=== PATIENT | female | born 1960 | race Caucasian/White ===

== ENCOUNTER 2020-03-23 15:51 | Emergency (ER) | payer MEDICAID ==
[~2020-03-23] VITALS: Ht 157.5 cm; Wt 77.4 kg
[2020-03-23 16:04] VITALS: BP 178/81
== END 2020-03-23 16:50 | disposition left against medical advice (07) ==
LOC: ER 15:52
DX: G89.29 Other chronic pain (principal); M54.9 Dorsalgia, unspecified; Z53.21 Procedure and treatment not carried out due to patient leaving prior to being seen by health care provider

== ENCOUNTER 2021-01-03 19:56 | Emergency (ER) | payer MEDICAID ==
[~2021-01-03] VITALS: Ht 157.5 cm; Wt 34.1 kg
[2021-01-03] MEDS ORDERED: normal saline 1000ML IV soln IVB ONE (20:25)
[2021-01-03] MEDS ORDERED: ondansetron/PF 4mg/2ml inj IV ONE (20:25)
[2021-01-03] MEDS ORDERED: famotidine/PF 10 mg/ml inj IV ONE (20:30)
[2021-01-03] MEDS ORDERED: mag hydrox/Alum hydrox/simeth 30ml oral suspension PO ONE (20:30)
[2021-01-03] MEDS ORDERED: LIDOcaine Viscous 15ml cup MM ONE (20:30)
[2021-01-03] MEDS ORDERED: LORazepam 2 mg/ml vial IV ONE (20:30)
[2021-01-03] MEDS ORDERED: ketorolac trometh. 30mg/ml inj. IV ONE (20:30)
[2021-01-03] MEDS ORDERED: normal saline 1000ml 1,000 ML IV ONE (20:30)
[2021-01-03] MEDS ORDERED: pantoprazole 40 MG vial IV ONE (20:30)
[2021-01-03] MEDS ORDERED: metoclopramide 5 mg/ml inj IV ONE (20:30)
[2021-01-03 21:33] LABS: BASOPHILS % (AUTO) 0.3 % (0-1); EOSINOPHILS % (AUTO) 0.1 % (0-6); HEMATOCRIT 45.6 % (35.0-45.0); HEMOGLOBIN 15.3 g/dl (12.0-16.0); LYMPHOCYTES # (AUTO) 0.5 X10'3 (1.1-4.8); LYMPHOCYTES % (AUTO) 3.6 % (21-51); MEAN CORPUSCULAR HGB CONC 33.6 g/dL (33.0-36.5); MEAN CORPUSCULAR VOLUME 89.3 FL (78-98); MEAN PLATELET VOLUME 8.3 FL (7.4-10.4); MONOCYTES # (AUTO) 0.3 X10'3 (0-0.9); MONOCYTES % (AUTO) 2.5 % (2-12); NEUTROPHILS # (AUTO) 12.6 X10'3 (1.8-7.7); NEUTROPHILS % (AUTO) 93.5 % (42-75); PLATELET COUNT 320 X10'3 (140-440); RED CELL DISTRIBUTION WIDTH 13.9 % (11.5-14.5); WHITE BLOOD COUNT 13.4 X10'3 (4.5-11.0)
[2021-01-03 21:58] LABS: ALANINE AMINOTRANSFERASE 39 U/L (12-78); ALBUMIN/GLOBULIN RATIO 1.3 (1.1-1.5); ALKALINE PHOSPHATASE 45 IU/L (46-116); ANION GAP 11 (8-16); ASPARTATE AMINO TRANSFERASE 31 U/L (10-37); BILIRUBIN,TOTAL 0.7 MG/DL (0.1-1.0); BLOOD UREA NITROGEN 16 MG/DL (7-18); BUN/CREATININE RATIO 25.8 (6.6-38.0); CALCIUM 8.6 MG/DL (8.5-10.1); CHLORIDE 104 MMOL/L (99-107); CREATINE KINASE 112 U/L (26-192); CREATININE 0.62 MG/DL (0.40-0.90); GLUCOSE 133 MG/DL (70-104); LIPASE 100 U/L (73-393); POTASSIUM 3.9 MMOL/L (3.5-5.1); SODIUM 140 MMOL/L (135-145); TOTAL CARBON DIOXIDE 24.8 MMOL/L (24-32); TOTAL PROTEIN 7.2 G/DL (6.4-8.2); TROPONIN I < 0.04 NG/ML (0.0-0.05); eGFR > 90 ML/MIN
[2021-01-03] MEDS ORDERED: FAMO-128 PO (22:29)
[2021-01-03] MEDS ORDERED: METO-292 PO (22:29)
[2021-01-03 22:55] VITALS: BP 161/69
== END 2021-01-03 23:14 | disposition home or self-care (01) ==
LOC: ER 19:56
DX: R53.1 Weakness (principal); R11.2 Nausea with vomiting, unspecified; R51.9 Headache, unspecified; K21.9 Gastro-esophageal reflux disease without esophagitis; I10 Essential (primary) hypertension; Z79.899 Other long term (current) drug therapy
CPT/HCPCS: 36415; 71045; 80053; 82550; 83605; 83690; 84145; 84484; 85025; 93005; 96361; 96374; 96375; 99285; C9113; J1885; J2060; J2405; J2765; J3490; J7030

== ENCOUNTER 2021-09-10 07:30 | Day surgery (SDC) | payer MEDICAID ==
[~2021-09-10] VITALS: Ht 152.4 cm; Wt 38.6 kg
[~2021-09-10 07:30] MED LIST: FAMO-128 PO; METO-292 PO
[2021-09-10 07:45] VITALS: BP 139/66
[2021-09-10] MEDS ORDERED: HYDR-3686 PO (08:01)
[2021-09-10] MEDS ORDERED: TRAZ-251 PO (08:02)
[2021-09-10] MEDS ORDERED: PROZ10C PO (08:02)
[2021-09-10] MEDS ORDERED: CLON0.1T PO (08:03)
[2021-09-10] MEDS ORDERED: VALS80TA32 PO (08:05)
[2021-09-10] MEDS ORDERED: LOSA50TA64 PO (08:05)
[2021-09-10] MEDS ORDERED: ALBU1.256 NEB (08:06)
[2021-09-10] MEDS ORDERED: ESTR2TAB50 PO (08:08)
[2021-09-10] MEDS ORDERED: TRIA16.911 BOTHNARES (08:08)
[2021-09-10] MEDS ORDERED: VERA240C2 PO (08:09)
[2021-09-10] MEDS ORDERED: [UNRECOGNIZED DRUG - CODE] PO (08:10)
[2021-09-10] MEDS ORDERED: OMEP20CA16 PO (08:11)
[2021-09-10] MEDS ORDERED: fentaNYL/PF 50MCG/1 ML 2ML syringe ONE (08:25)
[2021-09-10] MEDS ORDERED: MIDAZolam 1 MG/ML 5ML VIAL ONE (08:25)
[2021-09-10] MEDS ORDERED: LIDOcaine Viscous 15ml cup ONE (08:25)
[2021-09-10 09:57] VITALS: BP 154/66
[2021-09-10 10:07] VITALS: BP 148/67
[2021-09-10 10:17] VITALS: BP 162/71
[2021-09-10 10:27] VITALS: BP 174/63
== END 2021-09-10 10:25 | disposition home or self-care (01) ==
LOC: GI LAB 07:30
PROVIDERS: ATTEND Internal Medicine Gastroenterology
DX: R10.13 Epigastric pain (principal); R12 Heartburn; K29.50 Unspecified chronic gastritis without bleeding; K21.00 Gastro-esophageal reflux disease with esophagitis, without bleeding
CPT/HCPCS: 43239; 99152; J2250; J3010; J7040; Z7512; A4620

== ENCOUNTER 2021-09-22 10:17 | Emergency (ER) | payer MEDICAID ==
[~2021-09-22] VITALS: Ht 152.4 cm; Wt 40.9 kg
[~2021-09-22 10:17] MED LIST changes: +ALBU1.256 NEB; +CLON0.1T PO; +ESTR2TAB50 PO; -FAMO-128 PO; +HYDR-3686 PO; -METO-292 PO; +OMEP20CA16 PO; +PROZ10C PO; +TRAZ-251 PO; +TRIA16.911 BOTHNARES; +VALS80TA32 PO; +VERA240C2 PO; +[UNRECOGNIZED DRUG - CODE] PO
[2021-09-22] MEDS ORDERED: pantoprazole IV 80 MG in normal saline 100ml IV soln 100 ML IV ONE (10:25)
[2021-09-22] MEDS ORDERED: famotidine/PF 10 mg/ml inj IV ONE (10:25)
[2021-09-22] MEDS ORDERED: ondansetron/PF 4mg/2ml inj IV ONE (10:35)
[2021-09-22] MEDS ORDERED: LORazepam 2 mg/ml vial IV ONE (10:35)
[2021-09-22 10:48] LABS: BASOPHILS # (AUTO) 0.1 X10'3 (0-0.2); BASOPHILS % (AUTO) 1.1 % (0-1); EOSINOPHILS % (AUTO) 0.1 % (0-6); HEMATOCRIT 46.5 % (35.0-45.0); HEMOGLOBIN 15.9 g/dl (12.0-16.0); LYMPHOCYTES % (AUTO) 9.9 % (21-51); MEAN CORPUSCULAR HEMOGLOBIN 29.7 PG (27.0-31.0); MEAN CORPUSCULAR HGB CONC 34.1 g/dL (33.0-36.5); MEAN CORPUSCULAR VOLUME 87.2 FL (78-98); MEAN PLATELET VOLUME 8.1 FL (7.4-10.4); MONOCYTES # (AUTO) 0.5 X10'3 (0-0.9); MONOCYTES % (AUTO) 5.4 % (2-12); NEUTROPHILS % (AUTO) 83.5 % (42-75); PLATELET COUNT 393 X10'3 (140-440); RED BLOOD COUNT 5.34 X10'6 (4.20-5.60); RED CELL DISTRIBUTION WIDTH 12.9 % (11.5-14.5); WHITE BLOOD COUNT 9.6 X10'3 (4.5-11.0)
[2021-09-22 11:16] LABS: ALANINE AMINOTRANSFERASE 31 U/L (12-78); ALBUMIN 3.7 G/DL (3.4-5.0); ALBUMIN/GLOBULIN RATIO 1.1 (1.1-1.5); ANION GAP 10 (8-16); ASPARTATE AMINO TRANSFERASE 28 U/L (10-37); BILIRUBIN,TOTAL 0.6 MG/DL (0.1-1.0); BLOOD UREA NITROGEN 16 MG/DL (7-18); BUN/CREATININE RATIO 17.8 (6.6-38.0); CALCIUM 8.6 MG/DL (8.5-10.1); CHLORIDE 106 MMOL/L (99-107); GLUCOSE 161 MG/DL (70-104); POTASSIUM 3.7 MMOL/L (3.5-5.1); SODIUM 139 MMOL/L (135-145); TOTAL CARBON DIOXIDE 22.7 MMOL/L (24-32); TOTAL PROTEIN 7.1 G/DL (6.4-8.2); eGFR 64 ML/MIN
[2021-09-22 12:19] VITALS: BP 135/71
== END 2021-09-22 12:22 | disposition home or self-care (01) ==
LOC: ER 10:17
DX: R07.89 Other chest pain (principal); M54.89 Other dorsalgia; I10 Essential (primary) hypertension; K21.9 Gastro-esophageal reflux disease without esophagitis; F41.9 Anxiety disorder, unspecified; Z88.8 Allergy status to other drugs, medicaments and biological substances; Z79.899 Other long term (current) drug therapy
CPT/HCPCS: 36415; 71045; 80053; 83880; 84484; 85025; 93005; 96374; 96375; 99285; C9113; J2060; J2405; J3490

== ENCOUNTER 2022-10-20 06:54 | Day surgery (SDC) | payer MEDICAID ==
[~2022-10-20] VITALS: Ht 157.5 cm; Wt 39.8 kg
[2022-10-20 07:09] VITALS: BP 150/74
[2022-10-20] MEDS ORDERED: LIDOcaine 1% 30ml preserv. free vial SQ STA (07:10)
[2022-10-20] MEDS ORDERED: albumin 25% 100mL bottle x 1 IV PRN (07:15)
[2022-10-20] MEDS ORDERED: ESTR2TAB6 PO (07:26)
== END 2022-10-20 09:00 | disposition home or self-care (01) ==
LOC: SSTAY O 06:54
PROVIDERS: ATTEND Radiology Vascular & Interventional Radiology
DX: R14.0 Abdominal distension (gaseous) (principal); Z53.8 Procedure and treatment not carried out for other reasons; D49.59 Neoplasm of unspecified behavior of other genitourinary organ; I10 Essential (primary) hypertension; K21.9 Gastro-esophageal reflux disease without esophagitis; F41.9 Anxiety disorder, unspecified; E46 Unspecified protein-calorie malnutrition; F50.00 Anorexia nervosa, unspecified; Z90.49 Acquired absence of other specified parts of digestive tract; Z88.8 Allergy status to other drugs, medicaments and biological substances; Z88.5 Allergy status to narcotic agent; Z79.899 Other long term (current) drug therapy
CPT/HCPCS: 76705; A6258